=== PATIENT | male | born 1950 | race Caucasian/White ===

== ENCOUNTER 2019-01-10 13:28 | Observation (INO) ==
[2019-01-10] MEDS ORDERED: *HR* Morphine 2 MG/ML SYRINGE IVP ONE (13:49)
[2019-01-10] MEDS ORDERED: Vancomycin 1,000 MG in D5% in Water 250 ML IVPB ONE (13:51)
[2019-01-10 14:06] LABS: Basophils % 0.4 %; Eosinophils # 0.2 K/mcL (0.0-0.6); Eosinophils % 2.3 %; Hematocrit 39.2 % (37.5-50.1); Hemoglobin 13.5 g/dL (12.9-16.9); Immature Granulocytes % 0.9 % (0-4); Lymphocytes # 1.2 K/mcL (0.6-4.6); Lymphocytes % 14.7 %; Mean Corpuscular HGB Conc 34.4 g/dL (31.6-35.5); Mean Corpuscular Hemoglobin 31.8 pg (28.0-33.3); Mean Corpuscular Volume 92.5 fL (83.0-100.0); Mean Platelet Volume 9.2 fL (9.4-12.4); Monocytes # 0.6 K/mcL (0.0-1.3); Monocytes % 7.5 %; Neutrophils # 5.9 K/mcL (1.6-8.9); Platelet Count 230 K/mcL (140-400); Red Blood Count 4.24 M/mcL (4.19-5.50); Red Cell Distribution Width 13.8 % (11.5-14.5); Segmented Neutrophils % 74.2 %
[2019-01-10 14:25] LABS: BUN/Creatinine Ratio 12 (6-26); Blood Urea Nitrogen 10 mg/dL (8-23); Calcium 9.3 mg/dL (8.6-10.3); Carbon Dioxide 24 mEq/L (23-29); Chloride 103 mEq/L (98-107); Glucose 137 mg/dL (70-105); Osmolality,Calculated 281 (280-300); Sodium 135 mEq/L (136-145); eGFR For Non-African Americans > 60 (> 60)
[2019-01-10] MEDS ORDERED: *HR* HYDROcodone/Acet 5/325 mg TABLET PO ONE (15:29)
--- NOTE | 2019-01-10 15:54 | Emergency Department Note ---
Disposition Clinical Impression: Cellulitis of right leg Skin ulcer of right lower leg Qualifiers: Non-pressure ulcer stage: unspecified non-pressure ulcer stage Qualified Code(s): L97.919 - Non-pressure chronic ulcer of unspecified part of right lower leg with unspecified severity Disposition: Admitted As Inpatient Time of Disposition: 16:41 Extremity Problem HPI - General Chief complaint: ED Extremity Problem,Nontraumatic Stated complaint: R leg swelling with redness Time Seen by Provider: 01/10/19 13:38 Source: patient, family Mode of arrival: ambulatory Limitations: no limitations Nursing Notes Reviewed: Yes Vital Signs Reviewed: Yes - History of Present Illness HPI Narrative: seen 2-9 ED for wound of the right leg. The patient has been seen by wound management. He had cultures of the wound and was initially on cephalosporins but his daughter states that they had a call 3 days ago and his antibiotic was switched to Levaquin. The patient was seen again by wound care today and sent over because of redness of the left leg surrounding the wound and extending into the left thigh. Patient denies any injuries, reports that the wound has continued to drain yellowish fluid, he reports he has not had nausea or vomiting and has not had fever. He states decreased appetite. He denies any abdominal or groin pain. Reports no chest pain or difficulty breathing. He states that he always swells in his left leg is quite swollen. Pt Subjective Complaint: extremity pain, extremity swelling Onset (ago): day(s) (3) Consistency: constant Injury Location: right, lower extremity Pain Scale: 5 Quality: aching, dull Radiation: proximal, distal Improves with: rest Worsens with: weight bearing, walking, palpation Associated symptoms: Reports: denies other symptoms - Related Data Home Medications Medication Instructions Recorded Confirmed Albuterol Neb [Proventil Neb] 2.5 mg IH Q4HR PRN 01/01/19 01/01/19 Albuterol Sulfate [Albuterol 1 puff IH Q4-6H PRN 01/01/19 01/01/19 Inhaler] Aspirin [Ecotrin] 325 mg PO DAILY 01/01/19 01/01/19 Furosemide [Lasix] 20 mg PO BID 01/01/19 01/01/19 Hydrocodone/Acetaminophen 1 each PO Q4-6H PRN 01/01/19 01/01/19 [Hydrocodon-Acetaminophen 5-325] Lisinopril [Zestril] 40 mg PO BID 01/01/19 01/01/19 Naproxen [Naprosyn] 500 mg PO BID 01/01/19 01/01/19 Potassium Chloride [K-Tab ER] 40 meq PO DAILY 01/01/19 01/01/19 Simvastatin [Zocor] 40 mg PO HS 01/01/19 01/01/19 dilTIAZem HCl [Cardizem] 120 mg PO BID 01/01/19 01/01/19 Previous Rx's Medication Instructions Recorded Clindamycin HCl [Cleocin HCl] 300 mg PO TID #21 cap 01/01/19 Allergies Allergy/AdvReac Type Severity Reaction Status Date / Time Penicillins Allergy Gastrointestinal Verified 01/01/19 21:32 Upset All systems ED: reviewed and negative except as stated. Review of Systems: As Per HPI Past Medical History - Past Medical History Medical history: Reports: CHF, COPD, CVA, hyperlipidemia, hypertension, myocardial infarction Psychiatric history: Reports: no psych history - Social History Smoking Status: Never smoker Smokeless Tobacco Status: No Alcohol use: Reports: none Drug use: Reports: none Physical Exam Constitutional: Patient is oriented to person, place, and time. Skin color is pink. Appears well hydrated, body habitus obese, elderly, Non toxic appearing. Head: Normocephalic and atraumatic. External ear exam normal Nose: Nose normal. Mouth/Throat: Uvula is midline, oropharynx is clear and moist and mucous membranes are normal. Eyes: Conjunctivae nl, extraocular motions and lids are normal. Pupils are equal, round, and reactive to light. Neck: Normal range of motion and phonation normal. Neck supple. Cardiovascular: Normal rate, regular rhythm, normal heart sounds. Pulmonary/Chest: No Respiratory distress. Respiratory Effort normal and breath sounds clear. Abdominal: Soft. Normal appearance and bowel sounds are normal. no tenderness, no masses, no guarding, no rebound Musculoskeletal: Good distal pulses. Soft compartments. Brisk cap refill. Extremities: Range of motion somewhat limited by general debilitated state and arthritic joints. Intact peripheral pulses. 2+ pitting edema right leg and his right leg is swollen significantly compared to his left all the way up into the groin area.. Extremity skin color nl, tenderness is of the calf without palpable cords but also is tender in the medial aspect of the right groin. Patient has well-demarcated erythema surrounding the wound on his right lower extremity which extends all the way into the right groin. Lymph: Patient does not have swollen inguinal lymphadenopathy Neurological: GCS 15 Patient is alert and oriented without evidence of obvious motor deficits Skin: Skin is warm, dry and intact. color is normal, cap refill is delayed bilaterally lower extremities. There is an open draining ulcer over the anterior and medial aspect of his right lower extremity. There is surrounding erythema, edema, and the erythema extends to upper medial right Psychiatric: Patient has depressed mood and cries often during the examination.. Patient speech is normal and behavior is normal. Thought content normal. - General General appearance: alert, in no apparent distress Course - Reevaluation(s) Reevaluation #1: pt refused the morphine offered and reports severe pain but will only take hydrocodone. Hydrocortisone ordered Patient was initially refusing hospitalization. There was quite a discussion which took about 30 minutes between the patient, his on the phone, and his daughter at bedside before they made a decision that they would agree to stay in the hospital for hospitalization for IV antibiotics for his cellulitis. I discussed the case with Dr. Morrissey by cell phone voicemail and am awaiting a call back to get the patient admitted for IV antibiotics I have witnessed the patient move and am concerned with the degree of swelling he has on physical examination that there could be a concomitant DVT and have ordered a Doppler ultrasound Time: 15:55 Reevaluation #2: I placed a second call to dr Radford and left message. 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 Time: 16:26 Reevaluation #3: I contacted Dr. chambers. We spoke about the patient's case. He agrees with hospitalization. He and I discussed patient's orders. He would like me to enter orders for admission as a courtesy. I have agreed to do so. We discussed his preference for Lovenox 40 mg daily and Levaquin 750 daily for the cellulitis I also discussed the case with Doppler tech who indicates that the patient has no DVT between the popliteal area in the groin but the edema distally precludes further evaluation with ultrasound to confirm that there is no DVT below that level Time: 16:40 - Consultations Consultation #1: Head 1707 and was called to the bedside as the patient was complaining of chest pain. He reports that it occurred when they laid him flat to do the Doppler. He states that "lying down flat will cause me to have a heart attack where my back was broke" he describes that he gets back pain gets very severe when he lays flat and that causes chest pain. Patient describes his chest pain as left upper anterior chest radiating into the left side of the neck without radiation to the arm or back. He states that it f eels "like when my heart hurts and I need to take a nitroglycerin" patient reports a max pain of 9/10. He reports a current pain at 1707 of 4.5/10. ECG was done and shows no evidence of acute ischemia. Nitroglycerin and aspirin were administered. He also had a troponin drawn Time: 17:39 Consultation #2: Patient states since they seated him in a chair his chest pain is resolved. He reports that this is usually what relieves it at home. He reports that he gets chest pain every time he lays flat and it usually is improved with repositioning upright. He states that he thinks the nitroglycerin helped also. He uses that occasionally for chest pain. He reports no chest pain now. Patient describes chronic angina and/or positional chest pain and there is no sign of any acute ACS or concerning nature to the chest pain based on the patie nt's history and physical examination and ECG. Troponin is pending but if negative I believe planned should remain to hospitalized here for treatment of his cellulitis with IV antibiotics Time: 17:55 Vital Signs Temperature 97.4 F L 01/10/19 13:35 Pulse Rate 60 01/10/19 13:35 Respiratory Rate 18 01/10/19 13:35 Blood Pressure 162/75 01/10/19 13:35 O2 Sat by Pulse Oximetry 99 01/10/19 13:35 Temperature 97.4 F L 01/10/19 13:35 Pulse Rate 62 01/10/19 17:47 Respiratory Rate 18 01/10/19 17:47 Blood Pressure 163/78 01/10/19 17:47 O2 Sat by Pulse Oximetry 98 01/10/19 17:47 Oxygen Delivery Oxygen Delivery Room Air Extremity Problem, [facility] - [facility] Narrative Medical decision making narrative: Patient has cellulitis and edema lower extremity. - Differential Diagnosis Likely: cellulitis, superficial thrombophlebitis, deep venous thrombosis, lower extremity edema - Medical Records Medical records reviewed: Yes I reviewed the patient's medical records. - Lab Data Lab results reviewed: Yes I reviewed the patient's lab results. Result diagrams: 01/10/19 13:55 01/10/19 13:55 Lab Results 01/10/19 01/10/19 Range/Units 13:55 13:55 WBC 7.9 (4.3-11.1) K/mcL RBC 4.24 (4.19-5.50) M/mcL Hgb 13.5 (12.9-16.9) g/dL Hct 39.2 (37.5-50.1) % MCV 92.5 (83.0-100.0) fL MCH 31.8 (28.0-33.3) pg MCHC 34.4 (31.6-35.5) g/dL RDW 13.8 (11.5-14.5) % Plt Count 230 (140-400) K/mcL MPV 9.2 L (9.4-12.4) fL Immature Gran % 0.9 (0-4) % Seg Neutrophils % 74.2 % Lymphocytes % 14.7 % Monocytes % 7.5 % Eosinophils % 2.3 % Basophils % 0.4 % Neutrophils # 5.9 (1.6-8.9) K/mcL Lymphocytes # 1.2 (0.6-4.6) K/mcL Monocytes # 0.6 (0.0-1.3) K/mcL Eosinophils # 0.2 (0.0-0.6) K/mcL Basophils # 0.0 (0.0-0.2) K/mcL Sodium 135 L (136-145) mEq/L Potassium 4.0 (3.5-5.1) mEq/L Chloride 103 (98-107) mEq/L Carbon Dioxide 24 (23-29) mEq/L BUN 10 (8-23) mg/dL Creatinine 0.81 (0.70-1.30) mg/dL Est GFR ( Amer) > 60 (> 60) Est GFR (Non-Af Amer) > 60 (> 60) BUN/Creatinine Ratio 12 (6-26) Glucose 137 H (70-105) mg/dL Calculated Osmolality 281 (280-300) Calcium 9.3 (8.6-10.3) mg/dL - Radiology Data Radiology results reviewed: Yes I reviewed the patient's radiology results. Doppler ultrasound report from tech reveals no evidence of DVT - EKG Data EKG attestation: Yes I reviewed and interpreted this EKG. EKG results narrative: ECG performed at 15:11 during chest pain reveals no evidence of ST elevation or depression. Sinus rhythm rate of 59. Normal ECG
[2019-01-10] MEDS ORDERED: Levofloxacin 750 MG/150 ML 750 MG/150 ML BAG IVPB ONE (16:31)
[2019-01-10] MEDS ORDERED: Aspirin 81 MG TAB.CHEW PO ONE (17:10)
[2019-01-10] MEDS ORDERED: Nitroglycerin 0.4 MG TAB.SUBL SL PRN ×2 (17:10→18:46)
[2019-01-10] MEDS ORDERED: Nitroglycerin 0.4 MG TAB.SUBL SL ONE ×2 (17:32→18:46)
[2019-01-10] MEDS ORDERED: Aspirin 81 MG TAB.CHEW ONE ×2 (17:33→18:46)
[2019-01-10] MEDS ORDERED: Naloxone 0.4 MG/ML INJ IVP PRN (18:46)
[2019-01-10] MEDS ORDERED: Albuterol 2.5 MG/3 ML NEBULIZER IH PRN (18:46)
[2019-01-10] MEDS ORDERED: Ondansetron ODT 4 MG TAB.RAPDIS SL PRN (18:46)
[2019-01-10] MEDS ORDERED: Mag Hydrox/Al Hydrox/Simeth 30 ML UDC PO PRN (18:46)
[2019-01-10] MEDS ORDERED: *HR* HYDROcodone/Acet 5/325 mg TABLET PO PRN (18:46)
[2019-01-10] MEDS ORDERED: *HR* Dextrose 50 % in Water (Syg) 50 ML SYRINGE IVP PRN (20:01)
[2019-01-10] MEDS ORDERED: Dextrose Gel 15 GM/37.5 ML TUBE PO PRN ×2 (20:01)
[2019-01-10] MEDS ORDERED: Dextrose 4 GM Chewable Tablets PO PRN ×2 (20:01)
[2019-01-10] MEDS ORDERED: D5% in Water 1,000 ML IVC PRN (20:01)
[2019-01-10] MEDS: Lisinopril 20 MG TABLET PO SCH (20:10)
[2019-01-10] MEDS: dilTIAZem HCl 60 MG TABLET PO SCH (20:10)
[2019-01-10] MEDS: *HR* Enoxaparin 40 MG/0.4 ML SYRINGE SQ SCH (20:11)
[2019-01-10] MEDS: Furosemide 20 MG TABLET PO SCH (20:14)
[2019-01-10] MEDS ORDERED: Insulin LISPRO 300 UNITS/3 ML VIAL SQ SCH (21:00)
[2019-01-11 07:07] LABS: Basophils % 0.4 %; Eosinophils # 0.2 K/mcL (0.0-0.6); Eosinophils % 2.6 %; Hematocrit 35.7 % (37.5-50.1); Hemoglobin 12.1 g/dL (12.9-16.9); Immature Granulocytes % 0.8 % (0-4); Lymphocytes # 1.8 K/mcL (0.6-4.6); Lymphocytes % 23.1 %; Mean Corpuscular HGB Conc 33.9 g/dL (31.6-35.5); Mean Corpuscular Hemoglobin 31.2 pg (28.0-33.3); Mean Platelet Volume 9.7 fL (9.4-12.4); Monocytes # 0.6 K/mcL (0.0-1.3); Monocytes % 7.7 %; Platelet Count 215 K/mcL (140-400); Red Blood Count 3.88 M/mcL (4.19-5.50); Red Cell Distribution Width 13.6 % (11.5-14.5); Segmented Neutrophils % 65.4 %
[2019-01-11 07:27] LABS: BUN/Creatinine Ratio 11 (6-26); Blood Urea Nitrogen 9 mg/dL (8-23); Calcium 8.9 mg/dL (8.6-10.3); Carbon Dioxide 26 mEq/L (23-29); Chloride 106 mEq/L (98-107); Glucose 104 mg/dL (70-105); Osmolality,Calculated 285 (280-300); Sodium 138 mEq/L (136-145); eGFR For Non-African Americans > 60 (> 60)
[2019-01-11] MEDS: Insulin LISPRO 300 UNITS/3 ML VIAL SQ SCH ×2 (07:53→12:20)
[2019-01-11] MEDS: Furosemide 20 MG TABLET PO SCH (08:41)
[2019-01-11] MEDS: dilTIAZem HCl 60 MG TABLET PO SCH (08:41)
[2019-01-11] MEDS: Lisinopril 20 MG TABLET PO SCH (08:41)
[2019-01-11] MEDS: *HR* Enoxaparin 40 MG/0.4 ML SYRINGE SQ SCH (08:43)
[2019-01-11] MEDS ORDERED: Sulfamethoxazole/Trimeth 10 ML in D5% in Water 500 ML IVPB SCH (09:00)
[2019-01-11] MEDS ORDERED: Oseltamivir Phosphate 30 MG CAPSULE PO SCH (09:00)
[2019-01-11] MEDS ORDERED: Levofloxacin 750 MG/150 ML 750 MG/150 ML BAG IVPB SCH (09:00)
[2019-01-11] MEDS ORDERED: Aspirin Enteric Coated 325 MG Tablet PO SCH (09:00)
--- NOTE | 2019-01-11 10:22 | Internal Med History&Physical ---
Addendum entered and electronically signed by Italo Radford MD 01/11/19 10:34: I have personally performed a face to face evaluation on this patient. I have r eviewed and agree with the care plan. History and Exam by me shows: H&P reviewed with patient and daughter. On further questioning, he has 3-4 days of redness in both lower extremities, worse on the right where his wounds are located. He feels that the IV Levaquin has given him a rash diffusely, as well as itching, involvement of trunk and arms, and worsening respiratory symptoms. I told him we would document that he was allergic to Levaquin and look for different antibiotics. Multiple calls from the pharmacy have landed at tobramycin and vancomycin. I originally had prescribed Bactrim and vancomycin. His is a nurse and can give him IV therapy, at home. We will involve a home health agency to provide antibiotics. He has some dressing changes every Thursday by wound care and he states that he is actually having much less swelling, heartburn, than before. His daughter wonders about his doses of Lasix and potassium and these were adjusted accordingly. Past medical history is reviewed and as listed below. Patient has no complaint of chest discomfort, dyspnea, orthopnea, breathing problems, palpitations, nausea or vomiting, constipation or diarrhea, other changes in bowel habits, heartburn, difficulty with urination, kidney problems or kidney stones, fevers chills or sweats, rash or itching, seizures, headache or lightheadedness, heat or cold intolerance, blood problems or anemia, or other new complaints, except as mentioned above. Review of systems is otherwise negative. Examination: (Except as mentioned above): General: In no apparent distress, alert and oriented 3. Head: Atraumatic and normocephalic. Eyes: Extraocular muscles are intact, pupils equal round and reactive to light and accommodation. Sclerae anicteric. Ears: External ears are normal to inspection and hearing is grossly normal. Nose: Patent without lesion noted. Mouth: No intraoral lesions seen. He is edentulous.. Neck: Supple with trachea midline. There is no thyromegaly or adenopathy and carotids are 2+ without bruit heard. Respiratory: No use of accessory muscles. Lungs are clear throughout. Normal airflow. Cardiovascular: Regular rate and rhythm without murmur appreciated. Abdomen: Bowel sounds are normal. No hepatosplenomegaly masses or tenderness. Morbidly obese and therefore difficult to palpate deeply. Extremities: No cyanosis clubbing noted. Neurological: A and O 3. Cranial nerves II through XII are intact. No focal deficits and no abnormal movements or postures. Skin: Warm and non-diaphoretic with no lesions noted. He has minimal excoriations at the right anterior tibial region with erythema surrounding. Actually, there is erythema at both pretibial areas. He has 2+ pitting edema at the right pretibial areas, distally, the same on the left. He has a markedly swollen right foot dorsum and mildly swollen on the left. Breasts, pelvic and rectal: Not examined. The patient was told by the emergency room physician that he can go home today he desperately wants to. I told him I would prefer that he stay for 3 or 4 days of IV antibiotics but he says he cannot do that and describes his hospitals. He has a who is a registered nurse that can give him IV antibiotics at home. I told him we would work on that today. Will try to arrange an antibiotic regimen that can be used at home for cellulitis. As noted, we will list him as allergic to Levaquin. Although he has COPD, hypertension, coronary disease, these do not seem to be an acute problem. Original Note: Date of Encounter: 01/11/19 Time of Encounter: 10:19 Assessment and Plan (1) Cellulitis of right leg Current visit: Yes Status: Acute Patient with a infected skin ulceration to the right anterior leg and shows cellulitis to right lower leg. Patient has been under treatment of wound care and has received antibiotics in the past. Patient started on Levaquin and developed a sensitivity. History of severe penicillin allergy also. Patient currently started on vancomycin and tobramycin after sensitivity a wound culture received. He has been afebrile. Right anterior leg ulceration continues to have a moderate amount of serous drainage received. Patient with request to continue his IV antibiotics at home through home health services. We will discuss patient's case with older adult social work specialist for possible arrangements. Currently we will continue patient on current antibiotics. (2) COPD (chronic obstructive pulmonary disease) Current visit: Yes Status: Chronic No acute issues. Patient's lungs are clear throughout upper darden with diminished bases. Patient currently on room air. We will continue on current medications and bronchodilators. Qualifiers: COPD type: unspecified COPD Qualified Code(s): J44.9 - Chronic obstructive pulmonary disease, unspecified (3) CAD (coronary artery disease) Current visit: Yes Status: Acute No acute issues. Patient also with history of CHF. Lungs diminished bases but otherwise clear. Denies any chest discomforts or palpitations. We will continue with current medications. Qualifiers: Coronary Disease-Associated Artery/Lesion type: unspecified vessel or lesion type [place] vs. transplanted heart: [place] heart Associated angina: angina presence unspecified Qualified Code(s): I25.10 - Atherosclerotic heart disease of [place] coronary artery without angina pectoris Internal Medicine - H&P: HPI Chief complaint: right leg cellulitis Admitted From: Home Plans for Post Hospital Care: Home History of present illness: Mr. Olea is a 68 year old male, who was presented to the emergency department for evaluation of a right anterior leg wound infection and cellulitis. Patient has been under the care of wound care 3 times weekly and currently has a positive wound culture that is been treated with antibiotics. Patient was recently started on Levaquin but had a sensitivity reaction to the medication. Patient was admitted to the facility for further IV antibiotic treatment. Right leg has a small ulceration-type wound with moderate amount of serous drainage received. Patient has moderate erythema to the right leg which continues to mid thigh. Patient also has scattered areas of erythema with a few noted hives to his back and chest area, which she states occurred after he received his dosing of Levaquin. He also has a severe allergy to penicillin. Patient states he has moderate pain to the right leg, which is tolerable. Patient also complains of moderate constipation, which she states is a chronic issue at home. Patient otherwise, denies any current breath or other discomforts. Patient has been adamant about being discharged to home in requesting arrangements be made for IV antibiotics to be given per home health. Patient states that his is a nurse and has given him IV antibiotics at home before. Past Med Surg Social Fam HX - Past Medical History Medical history: CHF, COPD, CVA, hyperlipidemia, hypertension Psychiatric history: no psych history - Social History Smoking Status: Never smoker Smokeless Tobacco Status: No Alcohol use: none Drug use: none - Family History Mother Living Status: Hx Family Cancer: Yes Internal Medicine - H&P: Meds Albuterol Neb [Proventil Neb] 2.5 mg IH Q4HR PRN 01/01/19 [History] Albuterol Sulfate [Albuterol Inhaler] 1 puff IH Q4-6H PRN 01/01/19 [History] Aspirin [Ecotrin] 325 mg PO DAILY 01/01/19 [History] Furosemide [Lasix] 20 mg PO BID 01/01/19 [History] Hydrocodone/Acetaminophen [Hydrocodon-Acetaminophen 5-325] 1 each PO Q4-6H PRN 01/01/19 [History] Lisinopril [Zestril] 40 mg PO BID 01/01/19 [History] Naproxen [Naprosyn] 500 mg PO BID 01/01/19 [History] Potassium Chloride [K-Tab ER] 20 meq PO DAILY 01/01/19 [History] Simvastatin [Zocor] 40 mg PO HS 01/01/19 [History] dilTIAZem HCl [Cardizem] 120 mg PO BID 01/01/19 [History] Oseltamivir [Tamiflu] 01/10/19 [History] levoFLOXacin [Levaquin] 01/10/19 [History] Allergy/AdvReac Type Severity Reaction Status Date / Time Penicillins Allergy Severe Anaphylaxis Verified 01/11/19 09:51 levofloxacin [From Levaquin] Allergy Intermediate Rash Verified 01/11/19 09:51 All Systems PM: A 10-system review of systems was performed and is negative for pertinent findings except as documented above in the HPI. - Constitutional Constitutional: as per HPI, no chills, no fever(s), no night sweats - EENT Eyes: as per HPI, no change in vision, no discharge, no pain, no photophobia Ears: no ear discharge, no ear pain, no tinnitus Nose, mouth and throat: as per HPI, no dysphagia, no nasal discharge, no neck pain, no sore throat - Breasts Breasts: as per HPI - Cardiovascular Cardiovascular ROS IM: as per HPI, no chest pain, no diaphoresis, no dyspnea, no lightheadedness, no palpitations, no syncope - Respiratory Respiratory: as per HPI, no cough, no dyspnea, no wheezing, no excessive phlegm production - Gastrointestinal Gastrointestinal: as per HPI, no abdominal pain, no diarrhea, no hematemesis, no hematochezia, no melena, no nausea, no vomiting - Genitourinary Genitourinary ROS male: as per HPI - Musculoskeletal Musculoskeletal ROS IM: as per HPI, joint swelling, no numbness, no tingling - Integumentary Integumentary IM: as per HPI, skin ulcer, no rash, no unusual bruising - Neurological Neurological ROS: as per HPI, no confusion, no convulsions, no focal weakness, no numbness, no tingling, no tremor(s) - Hematologic/Lymphatic Hematologic/Lymphatic: no easy bruising - Constitutional Vitals: Temp Pulse Resp BP Pulse Ox 98.2 F 60 16 166/75 100 01/11/19 08:23 01/11/19 08:23 01/11/19 08:23 01/11/19 08:23 01/11/19 08:23 General appearance: Present: A&O X 3, pleasant - Head Head exam: Present: atraumatic, normocephalic - Eye Eye exam: Present: PERRL, conjuntiva pink, sclera anicteric Pupils: Present: PERRL - Neck Neck exam general surgery: Present: supple, trachea midline. Absent: lymphadenopathy - Respiratory Respiratory exam: Present: CTAB. Absent: accessory muscle use, rales, rhonchi, wheezes Additional comments: Lungs clear throughout upper darden and diminished basilar darden. Respiratory effort appears relaxed. no productive cough noted - Cardiovascular Cardiovascular exam: Present: RRR, +S1, +S2. Absent: diastolic murmur, gallop, rubs, systolic murmur - GI/Abdominal GI/Abdominal exam: Present: normal bowel sounds, soft, no peritoneal signs. Absent: distended, tenderness - Extremities Exam Extremities exam: Present: pedal edema, warm, radial pulses palpable and symmetrical. Absent: calf tenderness, cyanotic Additional comments: Patient with slight edema noted to bilateral lower extremities. Patient with w ound dressing to right lower leg with a Unna boot type covering. Right leg with [place] 2 x 2 centimeter ulceration to the anterior leg with a moderate amount of serous type drainage received. Patient with moderate erythema to entire right leg up to his mid thigh. - Neurological Exam Neurological exam: Present: CN II-XII intact, oriented X3, no focal deficits. Absent: pronater drift, facial droop, speech deficit - Skin Skin exam: Present: dry, intact Internal Med - H&P Results - Labs CBC & Chem 7: 01/11/19 06:45 01/11/19 06:45 Labs: Short CBC 01/10/19 01/11/19 Range/Units 13:55 06:45 WBC 7.9 7.7 (4.3-11.1) K/mcL Hgb 13.5 12.1 L (12.9-16.9) g/dL Hct 39.2 35.7 L (37.5-50.1) % Plt Count 230 215 (140-400) K/mcL Neutrophils # 5.9 5.0 (1.6-8.9) K/mcL BMP 01/10/19 01/11/19 13:55 06:45 Sodium 135 L 138 Potassium 4.0 4.0 Chloride 103 106 Carbon Dioxide 24 26 BUN 10 9 Creatinine 0.81 0.83 Glucose 137 H 104 Calcium 9.3 8.9 Cardiac Enzymes 01/10/19 Range/Units 17:39 Troponin I < 0.03 (< 0.04) ng/mL
[2019-01-11 11:58] VITALS: BP 147/72
[2019-01-11] MEDS ORDERED: TOBRAMYCIN SULF IVPB SCH (12:00)
[2019-01-11] MEDS ORDERED: SODIUM CHLORIDE 0.9% IVPB SCH (12:00)
--- NOTE | 2019-01-11 13:57 | Discharge Summary ---
Orders not resulted at time of discharge: Pending orders 01/10/19 14:00 Culture,Blood [BC] Stat 01/11/19 06:45 Sedimentation Rate [Erythrocyte Sedimentation Rate] [HEME] AM 0400 Date of Encounter: 01/11/19 Time of Encounter: 13:51 - Discharge Diagnosis (1) Cellulitis of right leg Priority: Primary Status: Acute Comments: Patient presented to the emergency department with increased erythema and a small ulceration to the anterior right leg. Ulceration was approximated 2 x 2 centimeter with a moderate amount of serous type drainage. Patient's had a positive wound culture from this wound with sensitivity received. Patient originally was given IV Levaquin for treatment of the wound but immediately afterwards developed a sensitivity rash, possibly related to Levaquin. Levaquin was discontinued. Patient currently is on vancomycin and tobramycin. Patient being prepared for possible discharge to home with oral medications. Patient will be discharged on Zyvox and Bactrim DS. Patient is to continue his follow- up with wound care 3 times weekly as he is been doing prior to admission. Patient is to follow-up with PCP within one week. (2) COPD (chronic obstructive pulmonary disease) Priority: Secondary Status: Chronic Comments: No acute issues during stay at this facility. Patient is continue with his home medications and follow-up with PCP after discharge. Qualifiers: COPD type: unspecified COPD Qualified Code(s): J44.9 - Chronic obstructive pulmonary disease, unspecified (3) CAD (coronary artery disease) Priority: Secondary Status: Chronic Comments: No acute issues during stay at this facility. Patient is to continue with home medications and follow-up with PCP after discharge Qualifiers: Coronary Disease-Associated Artery/Lesion type: unspecified vessel or lesion type [place] vs. transplanted heart: [place] heart Associated angina: angina presence unspecified Qualified Code(s): I25.10 - Atherosclerotic heart disease of [place] coronary artery without angina pectoris Hospital course: Mr. Olea is a 68 year old male, who was presented to the emergency department for evaluation of a right anterior leg wound infection and cellulites. Patient has been under the care of wound care 3 times weekly and currently has a positive wound culture that is been treated with antibiotics. Patient was recently started on Levaquin but had a sensitivity reaction to the medication. Patient was admitted to the facility for further IV antibiotic treatment. Right leg has a small ulceration-type wound with moderate amount of serous drainage received. Patient has moderate erythema to the right leg which continues to mid thigh. Patient also has scattered areas of erythema with a few noted hives to his back and chest area, which she states occurred after he received his dosing of Levaquin. He also has a severe allergy to penicillin. Patient states he has moderate pain to the right leg, which is tolerable. Patient also complains of moderate constipation, which she states is a chronic issue at home. Patient otherwise, denies any current breath or other discomforts. Patient will be switched to oral antibiotics to allow him to be discharged to home. Prescriptions provided for Bactrim DS and for Zyvox which are appropriate per sensitivity of his wound culture. Patient is to continue follow-up with wound care 3 times weekly as he has been doing prior to admission. Patient is to follow up with PCP within one week. Discharge discussed with: patient Time spent discussing smoking cessation with patient: 3 to 10 minutes - Time Spent with Patient Total time spent providing and/or coordinating discharge services: Less than 30 minutes - Discharge Medications Prescriptions: New Linezolid [Zyvox] 600 mg PO BID 14 Days #28 tablet Sulfamethoxazole/Trimeth DS [Bactrim DS] 1 each PO BID 14 Days #28 tablet Continue Naproxen [Naprosyn] 500 mg PO BID No Action Simvastatin [Zocor] 40 mg PO HS Potassium Chloride [K-Tab ER] 20 meq PO DAILY Lisinopril [Zestril] 40 mg PO BID Hydrocodone/Acetaminophen [Hydrocodon-Acetaminophen 5-325] 1 each PO Q4-6H PRN PRN Reason: Pain Furosemide [Lasix] 20 mg PO BID dilTIAZem HCl [Cardizem] 120 mg PO BID Aspirin [Ecotrin] 325 mg PO DAILY Albuterol Sulfate [Albuterol Inhaler] 1 puff IH Q4-6H PRN PRN Reason: Wheezing Albuterol Neb [Proventil Neb] 2.5 mg IH Q4HR PRN PRN Reason: Wheezing Oseltamivir [Tamiflu] levoFLOXacin [Levaquin] Home Medications: Albuterol Neb [Proventil Neb] 2.5 mg IH Q4HR PRN 01/01/19 [History] Albuterol Sulfate [Albuterol Inhaler] 1 puff IH Q4-6H PRN 01/01/19 [History] Aspirin [Ecotrin] 325 mg PO DAILY 01/01/19 [History] Furosemide [Lasix] 20 mg PO BID 01/01/19 [History] Hydrocodone/Acetaminophen [Hydrocodon-Acetaminophen 5-325] 1 each PO Q4-6H PRN 0 01/01/19 [History] Lisinopril [Zestril] 40 mg PO BID 01/01/19 [History] Naproxen [Naprosyn] 500 mg PO BID 01/01/19 [History] Potassium Chloride [K-Tab ER] 20 meq PO DAILY 01/01/19 [History] Simvastatin [Zocor] 40 mg PO HS 01/01/19 [History] dilTIAZem HCl [Cardizem] 120 mg PO BID 01/01/19 [History] Oseltamivir [Tamiflu] 01/10/19 [History] levoFLOXacin [Levaquin] 01/10/19 [History] Linezolid [Zyvox] 600 mg PO BID 14 Days #28 tablet 01/11/19 [Rx] Sulfamethoxazole/Trimeth DS [Bactrim DS] 1 each PO BID 14 Days #28 tablet 01/11/19 [Rx] Allergies/Adverse Reactions: Allergy/AdvReac Type Severity Reaction Status Date / Time Penicillins Allergy Severe Anaphylaxis Verified 01/11/19 09:51 levofloxacin [From Levaquin] Allergy Intermediate Rash Verified 01/11/19 09:51 Date of admission: 01/10/19 16:56 Primary care physician: Sue Wheeler MD Consults: 01/10/19 20:00 Consult to Wound Care [CONS] Routine Reason for Consult: celluilits right leg Call Completed: Yes Discharging clinician: Italo Radford - Constitutional Vitals: Temp Pulse Resp BP Pulse Ox 97.9 F 50 15 147/72 99 01/11/19 11:57 01/11/19 11:57 01/11/19 11:57 01/11/19 11:57 01/11/19 11:57 General appearance: Present: A&O X 3, pleasant - Head Head exam: Present: atraumatic, normocephalic - Eye Eye exam: Present: PERRL, conjuntiva pink, sclera anicteric Pupils: Present: PERRL - Neck Neck exam general surgery: Present: supple, trachea midline. Absent: lymphadenopathy - Respiratory Respiratory exam: Present: CTAB. Absent: accessory muscle use, rales, rhonchi, wheezes Additional comments: Lungs are clear throughout upper d[place] with diminished basis. - Cardiovascular Cardiovascular exam: Present: RRR, +S1, +S2. Absent: diastolic murmur, gallop, rubs, systolic murmur - GI/Abdominal GI/Abdominal exam: Present: normal bowel sounds, soft, no peritoneal signs. Absent: distended, tenderness - Extremities Exam Extremities exam: Present: warm, radial pulses palpable and symmetrical. Absent: calf tenderness, cyanotic, pedal edema Additional comments: Patient with moderate erythema to his right leg to mid thigh. Patient has a 2 x 2 ulceration to the anterior right leg with a moderate amount of serous drainage received. - Neurological Exam Neurological exam: Present: CN II-XII intact, oriented X3, no focal deficits. Absent: pronater drift, facial droop, speech deficit - Skin Skin exam: Present: dry, intact Additional comments: Patient shows a scattered rash to his chest and back. - Patient Status Disposition: Home, Self-Care Condition: Good Functional capacity at discharge: independent ambulation Overall status at discharge: patient is progressing back to baseline - Discharge Instructions Follow Up With: Sue Wheeler MD [Primary Care Provider] - Forms: Work/School Release - Diet and Activity Activity: increase activity as tolerated Diet: advance to your usual diet, low fat, low cholesterol, low salt diet
[2019-01-11] MEDS ORDERED: Sulfamethoxazole/Trimeth DS 1 EACH TABLET PO SCH (14:30)
[2019-01-11] MEDS ORDERED: Linezolid 600 MG TABLET PO SCH (14:30)
--- NOTE | 2019-01-12 09:17 | Electrocardiograph Report ---
[address] [address] Test Date: 2019-01-10 Pat Name: Dennis Olea Department: [facility] Room: 118 Gender: M [employer]: : 1950 Requested By: Luba Egan Order Number: [id number] Reading MD: Shira Matta Measurements Intervals [place] Rate: 59 P: 49 IN: 197 QRS: 47 QRSD: 107 T: 27 QT: 436 QTc: 432 Interpretive Statements Sinus rhythm Abnormal R-wave progression, early transition Electronically Signed On 01-12-2019 9:15:54 EST by Shira Matta
== END 2019-01-11 16:48 | disposition home or self-care (01) ==
LOC: EMEROOGRE 13:28 → INPGRE 13:28